=== PATIENT | female | born 1975 | race Caucasian/White ===

== ENCOUNTER 2020-06-14 21:13 | Emergency (ER) | payer BC ==
[2020-06-14] MEDS ORDERED: Fluorescein 1 MG Ophth Strip EYELF ONE (21:56)
--- NOTE | 2020-06-14 22:14 | EDM.PDOC ---
ED HPI GENERAL MEDICAL PROBLEM - General Chief Complaint: Headache Stated Complaint: RASH/EYE PAIN/HEADACHE LEFT SIDE OF HEAD Time Seen by Provider: 06/14/20 21:38 Source of Information: Reports: Patient History Limitations: Reports: No Limitations - History of Present Illness INITIAL COMMENTS - FREE TEXT/NARRATIVE: The patient presents with left sided headache and rash. This started a couple days ago. With the headache and then a rash showed up on her nose, forehead and uatsdin area. She also has pain in her eye. She has no blurred or double vision. She has no fever, chills, cough, congestion, runny nose, chest pain, shortness of breath, abdominal pain, nausea or vomiting. She never had shingles before but she did have chicken pox when she was a child. She does were contacts and she took them out before arrival tonight. Onset: Gradual Duration: Day(s): Location: Reports: Head, Face, Other (left eye) Quality: Reports: Sharp Severity: Moderate Improves with: Reports: None Worsens with: Reports: None Associated Symptoms: Reports: Headaches. Denies: Chest Pain, Cough, Fever/Chills, Nausea/Vomiting, Shortness of Breath Headache Pain Score (Numeric/FACES): 10 - Related Data Allergies Allergy/AdvReac Type Severity Reaction Status Date / Time No Known Allergies Allergy Verified 06/14/20 21:37 Home Meds: Home Meds valACYclovir [Valtrex] 1,000 mg PO TID #21 tab 06/14/20 [Rx] valACYclovir [Valtrex] 1,000 mg PO TID #21 tablet 06/14/20 [Rx] Past Medical History - Past Health History Medical/Surgical History: Denies Medical/Surgical History - Infectious Disease History Infectious Disease History: Reports: Chicken Pox Social & Family History - Tobacco Use Smoking Status *Q: Never Smoker ED ROS GENERAL - Review of Systems Review Of Systems: See Below Constitutional: Reports: No Symptoms HEENT: Reports: Eye Pain (eye), Other (left sided facial rash) Respiratory: Reports: No Symptoms Cardiovascular: Reports: No Symptoms Endocrine: Reports: No Symptoms GI/Abdominal: Reports: No Symptoms ED EXAM, SKIN/RASH Exam: See Below Exam Limited By: No Limitations General Appearance: Alert, No Apparent Distress Eye Exam: Left Eye: Conjunctival Injection, Other (Corneal exam with fluoress was normal), Bilateral Eye: EOMI, PERRL Ears: Normal External Exam Nose: Other (macular papular rash to the nose) Throat/Mouth: Normal Inspection Head: Atraumatic, Normocephalic Neck: Normal Inspection, Supple, Non-Tender Respiratory/Chest: No Respiratory Distress, Lungs Clear, Normal Breath Sounds Cardiovascular: Regular Rate, Rhythm, No Edema, No Murmur GI/Abdominal: Soft, Non-Tender, No Organomegaly, No Mass Back Exam: Normal Inspection Extremities: Normal Inspection Neurological: Alert, Oriented, No Motor/Sensory Deficits Skin: Other (Macular papular rash to the tip of the nose, left forehead and let uatsdin area) Course - Vital Signs Last Recorded V/S: Last Vital Signs Temp 98.0 F 06/14/20 21:32 Pulse 73 06/14/20 21:32 Resp 16 06/14/20 21:32 BP 152/82 H 06/14/20 21:32 Pulse Ox 97 06/14/20 21:32 - Orders/Labs/Meds Meds: Medications Discontinued Medications Generic Name Dose Route Start Last Admin Trade Name Bashir PRN Reason Stop Dose Admin Fluorescein Sodium 1 mg 06/14/20 21:56 06/14/20 22:06 Ful-Lolis EYELF 06/14/20 21:57 1 mg ONETIME ONE Administration Valacyclovir HCl 1,000 mg 06/14/20 23:03 Valtrex PO 06/14/20 23:04 ONETIME ONE - Re-Assessments/Exams Free Text/Narrative Re-Assessment/Exam: 06/14/20 23:03 I do not see any dendritic pattern to the left cornea. I am still concerned for shingles in her eye. I called [facility] in [place] and talked with Dr Taylor from the [facility] and he recommended an oral antiviral and she should follow up with her local president and chief executive officer or with the [facility]. Departure - Departure Time of Disposition: 23:10 Disposition: Home, Self-Care 01 Condition: Good Clinical Impression: Shingles Qualifiers: Herpes zoster complications: with ocular involvement Herpes zoster ocular complication detail: keratitis Qualified Code(s): B02.33 - Zoster keratitis - Discharge Information *PRESCRIPTION DRUG MONITORING PROGRAM REVIEWED*: No *COPY OF PRESCRIPTION DRUG MONITORING REPORT IN PATIENT WALT: No Prescriptions: valACYclovir [Valtrex] 1,000 mg PO TID #21 tab Referrals: Erica Fleming, [facility] [Primary Care Provider] - Forms: ED Department Discharge Additional Instructions: Follow up with your president and chief executive officer tomorrow or [facility] in [place]. Their number is . Take the valtrex 3 times per day for 7 days. Take the hydrocodone as needed for pain. Please return if you are worse. Sepsis Event Note (ED) - Evaluation Sepsis Screening Result: No Definite Risk - Focused Exam Vital Signs: Vital Signs Temp Pulse Resp BP Pulse Ox 06/14/20 21:32 98.0 F 73 16 152/82 H 97
[2020-06-14] MEDS ORDERED: valACYclovir 1,000 MG Tab PO ONE (23:03)
== END 2020-06-14 23:32 | disposition home or self-care (01) ==
LOC: JD.ED 21:13
DX: B02.33 Zoster keratitis (principal)
CPT/HCPCS: 99283; A9270